=== PATIENT | male | born 2005 | race Caucasian/White ===

== ENCOUNTER 2023-07-20 07:33 | Emergency (ER) | payer SELFPAY ==
[2023-07-20] MEDS ORDERED: LORazepam 2 MG/ML SDV IVPUSH ONE (07:44)
[2023-07-20] MEDS ORDERED: Aspirin 81 MG Tab.Chew PO ONE (07:44)
[2023-07-20] MEDS ORDERED: Sodium Chloride 0.9% 1,000 ML IV ONE (07:44)
[2023-07-20 07:52] LABS: BASOPHILS ABSOLUTE AUTO 0.06 K/uL (0.00-0.30); BASOPHILS PERCENT AUTO 0.8 % (0.0-1.0); EOSINOPHILS ABSOLUTE AUTO 0.14 K/uL (0.00-0.70); EOSINOPHILS PERCENT AUTO 1.8 % (0.0-5.0); HEMATOCRIT 47.3 % (42.0-52.0); HEMOGLOBIN 16.3 g/dL (14.0-18.0); IMMATURE GRAN ABSOLUTE AUTO 0.01 K/uL (0.00-0.05); IMMATURE GRAN PERCENT AUTO 0.1 % (0.0-0.4); LYMPHOCYTES PERCENT AUTO 42.5 % (50.0-65.0); MEAN CORPUSCULAR HEMOGLOBIN 30.2 pg (28.0-32.0); MEAN CORPUSCULAR HGB CONC 34.5 g/dL (32.0-36.0); MEAN CORPUSCULAR VOLUME 87.6 fL (83.0-99.0); MEAN PLATELET VOLUME 10.5 fL (9.4-12.4); MONOCYTES ABSOLUTE AUTO 0.67 K/uL (0.10-1.40); MONOCYTES PERCENT AUTO 8.6 % (2.0-10.0); NEUTROPHILS ABSOLUTE AUTO 3.58 K/uL (1.50-8.50); NEUTROPHILS PERCENT AUTO 46.2 % (35.0-45.0); PLATELET COUNT,PLT 232 K/uL (150-400); WHITE BLOOD CELL COUNT,WBC 7.76 K/uL (4.5-13.5)
[2023-07-20 08:11] LABS: INR 1.01 (0.86-1.11); PTT,PARTIAL THROMBOPLSTIN TIME 33.9 SEC (23.9-30.7)
[2023-07-20 08:27] LABS: A/G RATIO 1.5 (0.9-1.6); ALANINE AMINOTRANSFERASE,ALT 18 IU/L (14-63); ALBUMIN 4.7 g/dL (3.4-5.0); ALKALINE PHOSPHATASE 89 U/L (46-116); ASPARTATE AMNIOTRANSFERASE,AST 18 IU/L (15-37); BILIRUBIN TOTAL 1.3 mg/dL (0.2-1.0); BLOOD UREA NITROGEN,BUN 20 mg/dL (7.0-18.0); CALCIUM 9.1 mg/dL (8.5-10.1); CARBON DIOXIDE,CO2 27.9 mmol/L (21.0-32.0); CHLORIDE,CL 101 mmol/L (98-107); CREATININE 1.2 mg/dL (0.8-1.3); EST CRCL DRUG DOSING (CG) 90.05 mL/min; ETHANOL BLOOD MEDICAL <3 mg/dL; GLUCOSE RANDOM 89 mg/dL (74-106); LIPASE 19 U/L (16-77); MAGNESIUM 1.8 mg/dL (1.8-2.4); POTASSIUM,K 3.4 mmol/L (3.5-5.1); PROTEIN TOTAL,TP 7.8 g/dL (6.4-8.2); SODIUM,NA 140 mmol/L (136-148); TSH ULTRASENSITIVE 4.02 uIU/mL (0.36-3.74)
[2023-07-20 08:28] LABS: ESTIMATED GFR 89 mL/min (>60)
[2023-07-20 08:40] LABS: CORONAVIRUS COVID-19 NAA NEGATIVE (NEGATIVE); INFLUENZA A NAA NEGATIVE (NEGATIVE); INFLUENZA B NAA NEGATIVE (NEGATIVE)
[2023-07-20 08:48] LABS: T4 FREE 1.62 ng/dL (0.76-1.46)
== END 2023-07-20 09:39 | disposition home or self-care (01) ==
LOC: MW.ED 07:33
DX: R00.2 Palpitations (principal); Z20.822 Contact with and (suspected) exposure to COVID-19; Z88.6 Allergy status to analgesic agent
CPT/HCPCS: 0240U; 36415; 71045; 80053; 80307; 83690; 83735; 84439; 84443; 84484; 85025; 85610; 85730; 93005; 93246; 96361; 96374; 99285; J2060; J7030